=== PATIENT | male | born 1970 | race Caucasian/White ===

== ENCOUNTER → 2017-01-03 | Outpatient (CLI) | payer BC ==
--- NOTE | 2017-01-03 12:37 | EST ---
DATE OF SERVICE: 01/03/2017 AGE: 46Y SEX: M HT: 60 WT: 215 lbs. Protocol Alonzo: X Other: Stage: III Dur. of Exercise: 9:32 *Heart Rate Blood Pressure *Rest: 86 Rest: 116/84 * *Max. Achieved: 160 Maximum BP: 135/70 85% PMHR: 150 100% PMHR: 176 *METS: 9.9 INDICATIONS: Shortness of breath. MEDICATIONS: Baseline rhythm is sinus mechanism, rate of 86, normal axis and intervals. Occasional PVCs. Baseline blood pressure 116/84 mmHg. Patient exercised on Alonzo protocol for 9 minutes 32 seconds, achieving peak rate of 160 beats per minute, which is equal to 90% maximum predicted heart rate; peak blood pressure 135/70 mmHg. Test was stopped secondary to fatigue. There was no chest pain. Electrocardiograph monitoring revealed occasional PVCs throughout the tracing with no evidence of electrocardiographic changes. CONCLUSION: 1. Average exercise tolerance with normal electrocardiograph response to exercise. 2. Occasional single premature ventricular contractions during the stress test. 3. There was no chest pain.
== END | disposition home or self-care (01) ==
LOC: RADNMMAIN 10:38
PROVIDERS: ATTEND Family Medicine
DX: I49.3 Ventricular premature depolarization (principal)
CPT/HCPCS: 93017

== ENCOUNTER → 2017-03-19 | Outpatient (CLI) | payer BC ==
[2017-03-19 14:39] LABS: Basophils % (A) 0 %; Eosinophils # (A) 0.1 k/uL (0-0.7); Eosinophils % (A) 2 %; HCT 45.4 % (39.0-53.0); HDW 2.71; HGB 15.2 gm/dL (13.0-17.5); Luc # (Auto) 0.14; Luc % (Auto) 2; Lymphocytes # (A) 2.1 k/uL (1.0-4.8); Lymphocytes % (A) 25 %; MCH 31.8 pg (25.0-35.0); MCHC 33.6 g/dL (31.0-37.0); MCV 94.8 fL (80.0-100.0); Mean Platelet Volume 7.3; Monocytes # (A) 0.4 k/uL (0-1.0); Monocytes % (A) 5 %; Neutrophils # (A) 5.7 k/uL (1.3-7.7); Neutrophils % (A) 67 %; RBC 4.79 m/uL (4.30-5.90); RDW 13.2 % (11.5-15.5); WBC 8.5 k/uL (3.8-10.6); WBC (Perox) 8.18
[2017-03-19 15:04] LABS: Potassium 4.4 mmol/L (3.5-5.1)
== END | disposition home or self-care (01) ==
LOC: LABPAT 14:10
PROVIDERS: ATTEND Orthopaedic Surgery
DX: Z01.818 Encounter for other preprocedural examination (principal); Z01.812 Encounter for preprocedural laboratory examination; S82.451D Displaced comminuted fracture of shaft of right fibula, subsequent encounter for closed fracture with routine healing
CPT/HCPCS: 80051; 85025

== ENCOUNTER 2017-03-21 12:57 | Day surgery (SDC) | payer BC ==
--- NOTE | 2017-03-19 19:33 | HP ---
DATE OF ADMISSION: 03/21/2017 CHIEF COMPLAINT: Right ankle pain. 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 He [place] when he slipped down the edge and rolled his right ankle. He felt a crack. He was unable to put weight on it after the fall. Initially he was seen in an urgent care facility and was placed in a splint. PAST MEDICAL HISTORY: Negative. CURRENT MEDICATIONS: Ibuprofen. He denies drug allergies. FAMILY HISTORY: Significant for cancer. SOCIAL HISTORY: Negative for current tobacco or alcohol use. Sixteen-point review of systems otherwise reviewed and is noncontributory. On examination, the patient is approximately 5 foot 10, 212 pounds, of mesomorphic habitus. HEENT exam is nonfocal. Neck is supple. He is nontender about the lumbar spine. He has painless passive motion of the right hip. He is nontender about the right knee and proximal fibula. On examination of the right ankle, he has moderate lateral swelling. He is tender over the distal fibular shaft. He is nontender about the medial deltoid and medial malleolus. Ankle motion is somewhat limited because of swelling and pain. No mid or forefoot tenderness is noted. His distal neurovascular exam appears intact to the right lower extremity. X-rays brought with the patient to include 3 views of the right ankle from 03/17/2017 show a comminuted and displaced distal fibular shaft fracture. The mortise appears to be intact. The medial clear space is 2 to 3 mm. IMPRESSION: Right comminuted/displaced distal fibular shaft fracture. RECOMMENDATIONS: I talked to the patient at length regarding his treatment options. He opts to proceed with surgery. We will plan to proceed with open reduction and internal fixation of the right lateral malleolar ankle fracture. We will likely keep the patient for a 23-hour hold postoperatively. Risks and benefits were discussed at length in layman's terms.
[2017-03-20 09:14] VITALS: BMI 30.4
[~2017-03-21 12:57] MED LIST: FAMOTIDINE 20 MG/2 ML VIAL IV PRN; HYDROmorphone 1 MG/ML 1 ML SYRINGE IVP PRN; LIDOCAINE 1% 20 ML VIAL (10MG/ML) FOR IV START INTRADERMA PRN; MIDAZOLAM 2 MG/2 ML VIAL IV PRN; ceFAZolin 2 GM in SODIUM CHLORIDE 0.9% 100 ML IVPB ONE
[2017-03-21] MEDS: LACTATED RINGERS 1,000 ML IV SCH ×2 (13:18→16:12)
[2017-03-21] MEDS ORDERED: fentaNYL (PF) 50 MCG/ML 2 ML AMP ONE (13:48)
[2017-03-21] MEDS ORDERED: PROPOFOL 10 MG/ML 20 ML VIAL IV ONE (13:48)
[2017-03-21] MEDS ORDERED: MIDAZOLAM 2 MG/2 ML VIAL ONE (13:48)
[2017-03-21] MEDS ORDERED: LACTATED RINGERS 1,000 ML IV ONE (15:02)
--- NOTE | 2017-03-21 15:09 | XR ---
FLUOROSCOPY 8 seconds of fluoroscopy time were utilized during internal fixation of the right ankle. 2 images doc ument the procedure.
[2017-03-21] MEDS ORDERED: HYDROmorphone 1 MG/ML 1 ML SYRINGE IVP PRN ×2 (15:10)
[2017-03-21] MEDS ORDERED: ONDANSETRON 4 MG/2 ML VIAL IVP PRN (15:10)
[2017-03-21] MEDS ORDERED: HYDROcodone/APAP 5-325MG 1 EACH TAB PO PRN (15:10)
--- NOTE | 2017-03-21 15:15 | P.OP ---
Date of Procedure: 03/21/17 Preoperative Diagnosis: Displaced /comminuted spiral right distal fibular shaft fracture Postoperative Diagnosis: Same Procedure(s) Performed: Reduction and internal fixation right comminuted distal fibular shaft fracture Implants: 7 hole one third tubular Kimberly plate Anesthesia: spinal Surgeon: Wilbert Rosas [employer] Worker #1: Maykel Rosario Estimated Blood Loss (ml): 5 Pathology: none sent Condition: stable Disposition: PACU Indications for Procedure: Patient 46-year-old gentleman who presents after injuring his right ankle sustaining a closed displaced, comminuted, spiral distal fibular shaft fracture. A discussion of the risks and benefits of operative intervention versus attempted conservative measures was made with patient. He opted to proceed with surgery. Operative risks to include infection, neurovascular injury, development of blood clots, possible development of nonunion/malunion and need for subsequent procedures was discussed. Informed consent was obtained. Operative Findings: As below Description of Procedure: The patient was brought to the operating room, and after induction of spinal anesthesia the right lower extremity was prepped and draped in normal fashion. The tourniquet was inflated to 270 mmHg. A longitudinal incision extending approximate centimeters was then made centered over the distal fibula. The skin was incised sharply. Subcu tissues were divided bluntly. The branch of the superficial peroneal nerve were gently retracted. The periosteum overlying the fibular shaft fracture was then elevated. There was significant comminution and displacement at the fracture site. It was then reduced with a reduction clamp. A front to back 3.5 mm cortical screws placed to compress one plane of the fracture. A 7-hole one third tubular plate was placed along the lateral aspect the distal fibula and attached with 3.5 mm cortical screws the appropriate length. This was done with the aid of fluoroscopy. Final fluoroscopic view showed adequate reduction of the fracture and hindu of fibular length and the AP, mortise, and lateral views. The ankle mortise appeared to be intact. No significant disruption the syndesmosis was noted. The wound was irrigated with normal saline. The subcu tissues reapproximated interrupted 2-0 Vicryl sutures. The skin was reapproximated with 3-0 subcuticular Prolene suture. Steri-Strips were applied. A dressing was applied in addition to a bulky posterior splint. The tourniquet was deflated with approximate 45 minutes total tourniquet time. The patient was transferred to recovery room in good condition. Blood loss was estimated at 5 mL. No complications were incurred. Sponge and needle counts were correct at the end the case.
[2017-03-21 18:24] VITALS: RESP 16
[2017-03-21] MEDS: HYDROcodone/APAP 5-325MG 1 EACH TAB PO PRN (18:31)
[2017-03-21] MEDS ORDERED: ASPIRIN 325 MG TAB PO SCH (21:00)
[2017-03-21] MEDS: ceFAZolin 2 GM in SODIUM CHLORIDE 0.9% 100 ML IVPB SCH (21:29)
[2017-03-22] MEDS: HYDROcodone/APAP 5-325MG 1 EACH TAB PO PRN ×2 (03:14→09:46)
[2017-03-22] MEDS: ceFAZolin 2 GM in SODIUM CHLORIDE 0.9% 100 ML IVPB SCH (05:23)
--- NOTE | 2017-03-22 07:24 | P.DS ---
Providers Date of admission: 03/21/2017 Expected date of discharge: 03/22/17 Attending physician: Wilbert Rosas Primary care physician: Sirena Huff Hospital Course: Date of admission: 03/21/2017 Date of discharge: 03/22/2017 Admission diagnosis: Status post open reduction internal fixation right distal fibular shaft fracture Discharge diagnosis: Same Attending physician: Dr. Rosas Surgical procedures: Open reduction internal fixation right distal fibular shaft fracture Brief history: Patient is a 46-year-old male who was seen and evaluated in the outpatient setting by Dr. Rosas after sustaining a slip and fall accident. Patient was initially seen at the urgent care and diagnosed with a distal right fibular shaft fracture. It was determined after seeing Dr. Rosas that surgical fixation would be needed for proper treatment. He was scheduled for this procedure 4 03/21/2017. Hospital course: Details of patient's surgery can be found in operative report. Patient tolerated the procedure well and was subsequently transported to orthopedic floor. Patient's orthopeidc and medical care was provided daily. Patient had daily laboratory tests performed for evaluation of overall blood counts. Patient was treated with aspirin for their postoperative DVT prophylaxis during their inpatient stay. Patient was noted to have a relatively uneventful postoperative course. Patient reported satisfactory pain control with oral pain medications by postoperative day 0. Patient showed satisfactory progress with physical therapy. Patient moved steadily through the program and had no difficulty meeting the goals by postoperative day 1. Given patient's otherwise satisfactory course and having met physical therapy goals, plan is to discharge patient home on postoperative day 1. Discharge condition/disposition: Patient will be discharged home in stable condition. Discharge medications: Instructions are given on resumption of patient's normal daily medications per primary care recommendation, in addition patient will be prescribed aspirin 325 mg, [place] 5 mg/325 mg. Discharge instructions: 1. Keep splint clean and dry. Do not remove the Kamar bandage. Keep covered while showering 2. Nonweightbearing right lower extremity 3. Ice and elevate when necessary. Do not exceed 20 minutes per hour with ice pack. 4. Pain meds and anticoagulants per prescription. 5. Pain medication has potential to cause constipation. Increase oral fluid and fiber intake. Contact primary care provider if you have not had a bowel movement within 48 hours after discharge 6. Follow up in office at 2 weeks postop with Kee Rosario PA-C 7. Follow up with your primary care doctor 7-10 days after discharge. 8. Contact [facility] with any questions, . Procedures: Open reduction internal fixation right distal fibular shaft fracture Patient Condition at Discharge: Good Plan - Discharge Summary New Discharge Prescriptions: New Aspirin 325 mg PO DAILY #30 tab Hydrocodone/Acetaminophen [[place] 5-325] 1 - 2 each PO Q6HR PRN #60 tab PRN Reason: Pain No Action Acetaminophen Tab [Tylenol Tab] 650 mg PO Q6H PRN PRN Reason: Pain Discharge Medication List Acetaminophen Tab [Tylenol Tab] 650 mg PO Q6H PRN 03/20/17 [History] Aspirin 325 mg PO DAILY #30 tab 03/22/17 [Rx] Hydrocodone/Acetaminophen [[place] 5-325] 1 - 2 each PO Q6HR PRN #60 tab 03/22/17 [Rx] Follow up Appointment(s)/Referral(s): Maykel Rosario PAC [PHYSICIAN CONCESSION WORKER] - 2 Weeks Activity/Diet/Wound Care/Special Instructions: Orthopedic discharge instructions: 1. Nonweightbearing right lower extremity, utilize crutches when ambulating 2. Ice and elevate the right lower leg and often 3. Pain medication as needed 4. Aspirin 325 mg once daily for DVT prophylaxis 5. Keep cast covered and dry while showering 6. Follow-up at [facility] in 2 weeks for postoperative evaluation Discharge Disposition: HOME SELF-CARE
[2017-03-22 07:32] VITALS: BP 110/72; PULSE 72; TEMP 98
--- NOTE | 2017-03-22 09:36 | P.PN ---
Subjective Principal diagnosis: Status post ORIF right distal fibular shaft fracture Patient is seen today resting in his hospital bed, he appears comfortable. He did have some slight increase in pain yesterday when the spinal wore off this is well-controlled now. He denies any headaches, lightheadedness, chest pain, shortness of breath. Objective - Vital Signs Vital signs: Vital Signs Temp 98.0 F 03/22/17 07:00 Pulse 72 03/22/17 07:00 Resp 16 03/22/17 07:00 BP 110/72 03/22/17 07:00 Pulse Ox 96 03/22/17 07:00 Intake & Output 03/21/17 03/22/17 03/22/17 18:59 06:59 18:59 Intake Total 1550 200 Output Total 20 600 Balance 1530 -400 Intake: IV 1550 200 Lactated Ringers 1,000 ml 200 @ 20 mls/hr IV .Q24H SAGAR Rx#:[id number] Output: Urine 600 Estimated Blood Loss 20 Other: Voiding Method Urinal # Voids 2 - Exam Right lower extremity: Cast is in good position and condition. Sensory exam both distal and proximal to the splint is intact. His cap refills less than 3 seconds. He is able to wiggle all the toes. Assessment and Plan Plan: Assessment: 1. Postoperative day #1 status post ORIF right distal fibular shaft fracture Plan: 1. Pain control, patient will be discharged home with medication 2. Nonweightbearing right lower extremity, utilizes crutches or walker 3. GI and DVT prophylaxis, we'll discharge home on aspirin 325 mg oral once a day 4. Ice and elevate techniques were discussed 5. Patient will be discharged home today Time with Patient: Less than 30
== END 2017-03-22 12:54 | disposition home or self-care (01) ==
LOC: OR 12:57 → 3SUR 15:00 → OR 03-22 12:54
PROVIDERS: ATTEND Orthopaedic Surgery
DX: S82.451A Displaced comminuted fracture of shaft of right fibula, initial encounter for closed fracture (principal); S82.61XA Displaced fracture of lateral malleolus of right fibula, initial encounter for closed fracture; W01.0XXA Fall on same level from slipping, tripping and stumbling without subsequent striking against object, initial encounter; Z79.1 Long term (current) use of non-steroidal anti-inflammatories (NSAID)
CPT/HCPCS: 73600; 27784; C1713; J0690 ×2; J1170